=== PATIENT | male | born 1975 | race African-American/Black ===

== ENCOUNTER 2018-01-06 16:38 | Inpatient (IN) ==
[2018-01-06 17:59] LABS: Baso % (Auto) 0.6 % (0.0-2.0); Eos # (Auto) 0.1 th/mm3 (0.0-0.4); Eos % (Auto) 1.8 % (0.0-4.0); Hematocrit 35.2 % (39.0-51.0); Hemoglobin 12.5 gm/dL (13.0-17.0); Lymph # (Auto) 1.4 th/mm3 (1.0-4.8); Lymph % (Auto) 24.3 % (9.0-44.0); Mean Corpuscular HGB Conc 35.6 % (32.0-36.0); Mean Corpuscular Hemoglobin 32.1 pg (27.0-34.0); Mean Corpuscular Volume 90.2 fL (80.0-100.0); Mean Platelet Volume 10.5 fL (7.0-11.0); Mono # (Auto) 0.5 th/mm3 (0.0-0.9); Mono % (Auto) 8.8 % (0.0-8.0); Neut # (Auto) 3.6 th/mm3 (1.8-7.7); Neut % (Auto) 64.5 % (16.0-70.0); Platelet Count 169 th/mm3 (150-450); Red Cell Distribution Width 14.4 % (11.6-17.2); White Blood Count 5.6 th/mm3 (4.0-11.0)
[2018-01-06 18:20] LABS: Albumin 4.1 g/dL (3.4-5.0); Anion Gap 10 meq/L (5-15); Aspartate Aminotransferase 43 U/L (15-37); Blood Urea Nitrogen 9 mg/dL (7-18); Calcium 8.5 mg/dL (8.5-10.1); Carbon Dioxide 26.2 meq/L (21.0-32.0); Chloride 106 meq/L (98-107); Glomerular Filtration Rate 69 mL/min (>89); Glucose,Random 197 mg/dL (74-106); Magnesium 2.1 mg/dL (1.5-2.5); Potassium 3.1 meq/L (3.5-5.1); Sodium 142 meq/L (136-145)
[2018-01-06 18:32] LABS: Alanine Aminotransferase 49 U/L (12-78); Alkaline Phosphatase 59 U/L (45-117); Thyroid Stimulating Hormone 0.736 uIU/mL (0.358-3.740)
--- NOTE | 2018-01-06 18:56 | ED ---
HPI General Chief Complaint: Psychiatric Symptoms Stated Complaint: ARCHANA Painter Time Seen by Provider: 01/06/18 18:37 Source: patient Mode of arrival: ambulatory Limitations: no limitations History of Present Illness HPI Narrative: 42-year-old male presents to the emergency department under EXPARTE. He says his mother did this to him and he has no idea why. He says that she is an elderly woman and he left out of town to do work and came back in the police came and picked him up. 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 He denies suicidal or homicidal ideations. Denies history of suicidal attempts. Denies suicidal plan. Denies auditory visual hallucinations. Denies psychiatric background. Has no emergent medical complaints. Denies chest pain, shortness of breath, abdominal pain, nausea, vomiting, change in urine or stool. Denies illicit drug use, alcohol use, tobacco use. Symptoms are mild to moderate in severity. No known aggravating or relieving factors. Onset unknown. Duration unknown. No treatments tried. No primary care provider. No known allergies. Denies significant past medical history. Has no other medical complaints. No other modifying factors or associated signs and symptoms. Related Data Home Medications Medication Instructions Recorded Confirmed No Known Home Medications 01/06/18 01/06/18 Allergies Allergy/AdvReac Type Severity Reaction Status Date / Time No Known Allergies Allergy Verified 01/06/18 17:00 Review of Systems ROS: all other systems reviewed are negative [facility] Medical History Medical History Patient denies medical problems (Acute) Family History Family History Mother Diabetes Social History Social History Substance History: No History of Abuse Second Hand Smoke Exposure: No Smoking Status: Never smoker How Often Do You Have a Drink Containing Alcohol: Never Recent Travel in [place] within the Last 8 Weeks: No Recent Out of Country Travel within the Last 8 Weeks: No Immunization History Tetanus Immunization: Unsure Exam Narrative Exam Narrative: GENERAL: Well-nourished, well-developed black male patient, in no acute distress SKIN: Warm and dry. HEAD: Atraumatic. Normocephalic. EYES: Pupils equal and round. ENT: Mucosa pink and moist. NECK: Supple. Trachea midline. CARDIOVASCULAR: Regular rate and rhythm. No murmur appreciated. 3+ radial pulses. RESPIRATORY: No accessory muscle use. Clear to auscultation. Breath sounds equal bilaterally. GASTROINTESTINAL: Abdomen soft, non-tender, nondistended. Hepatic and splenic margins not palpable. Bowel sounds are active 4 quadrants. MUSCULOSKELETAL: No obvious deformities. No clubbing. No cyanosis. No edema. NEUROLOGICAL: Awake and alert. Oriented 3. No obvious cranial nerve deficits. Motor grossly within normal limits. Normal speech. Moves all extremities. 5/5 strength to all extremities. PSYCHIATRIC: No delusional thought processes. No hallucinations. Course Initial Documented Vital Signs Temperature 98.1 F 01/06/18 17:01 Pulse Rate 109 H 01/06/18 17:01 Respiratory Rate 16 01/06/18 17:01 Blood Pressure 129/79 01/06/18 17:01 Pulse Oximetry 100 01/06/18 17:01 Last Documented Vital Signs Temperature 98.5 F 01/08/18 05:32 Pulse Rate 78 01/08/18 05:32 Respiratory Rate 16 01/08/18 05:32 Blood Pressure 130/82 01/08/18 05:32 Pulse Oximetry 100 01/08/18 05:32 Medical Decision Making [facility] Narrative Medical decision making narrative: Patient presents under EXPARTE. Physical examination and vital signs are essentially unremarkable. Patient has no medical complaints to report. Psych screen has been ordered. If the laboratory results are unremarkable, the patient will be medically cleared for psychiatric evaluation and disposition. Medical Screen Exam Complete: Yes Emergency Medical Condition: Yes Differential Diagnosis Differential Diagnosis: Acute psychosis, bipolar disorder, depression, anxiety, adjustment disorder, medical clearance for psychiatric evaluation Lab Data Result diagrams: 01/06/18 17:04 01/07/18 07:00 Lab Results 01/06/18 01/06/18 01/06/18 Range/Units 17:04 17:04 17:04 WBC 5.6 (4.0-11.0) th/mm3 RBC 3.90 L (4.50-5.90) mil/mm3 Hgb 12.5 L (13.0-17.0) gm/dL Hct 35.2 L (39.0-51.0) % MCV 90.2 (80.0-100.0) fL MCH 32.1 (27.0-34.0) pg MCHC 35.6 (32.0-36.0) % RDW 14.4 (11.6-17.2) % Plt Count 169 (150-450) th/mm3 MPV 10.5 (7.0-11.0) fL Neut % (Auto) 64.5 (16.0-70.0) % Lymph % (Auto) 24.3 (9.0-44.0) % Rich % (Auto) 8.8 H (0.0-8.0) % Eos % (Auto) 1.8 (0.0-4.0) % Baso % (Auto) 0.6 (0.0-2.0) % Neut # (Auto) 3.6 (1.8-7.7) th/mm3 Lymph # (Auto) 1.4 (1.0-4.8) th/mm3 Rich # (Auto) 0.5 (0.0-0.9) th/mm3 Eos # (Auto) 0.1 (0.0-0.4) th/mm3 Baso # (Auto) 0.0 (0.0-0.2) th/mm3 WBC Differential . Differential Comment Auto diff final Sodium 142 (136-145) meq/L Potassium 3.1 L (3.5-5.1) meq/L Chloride 106 (98-107) meq/L Carbon Dioxide 26.2 (21.0-32.0) meq/L Anion Gap 10 (5-15) meq/L BUN 9 (7-18) mg/dL Creatinine 1.38 H (0.60-1.30) mg/dL Estimated GFR 69 L (>89) mL/min Random Glucose 197 H (74-106) mg/dL Calcium 8.5 (8.5-10.1) mg/dL Magnesium 2.1 (1.5-2.5) mg/dL Total Bilirubin 0.4 (0.2-1.0) mg/dL AST 43 H (15-37) U/L ALT 49 (12-78) U/L Alkaline Phosphatase 59 (45-117) U/L Total Protein 8.0 (6.4-8.2) g/dL Albumin 4.1 (3.4-5.0) g/dL Triglycerides (42-150) mg/dL Cholesterol (120-200) mg/dL LDL Cholesterol, Calc (0-99) mg/dL HDL Cholesterol (40.0-60.0) mg/dL Cholesterol/HDL Ratio Ratio TSH 0.736 (0.358-3.740) uIU/mL Salicylates Less than 1.7 L (2.8-20.0) mg/dL Urine Opiates Screen (Neg) Acetaminophen Less than 2.0 L (10.0-30.0) mcg/mL Ur Barbiturates Screen (Neg) Ur Amphetamines Screen (Neg) U Benzodiazepines Scrn (Neg) Urine Cocaine Screen (Neg) U Cannabinoids Screen (Neg) Serum Alcohol Less than 3 (0-5) mg/dL 01/06/18 01/07/18 Range/Units 19:30 07:00 WBC (4.0-11.0) th/mm3 RBC (4.50-5.90) mil/mm3 Hgb (13.0-17.0) gm/dL Hct (39.0-51.0) % MCV (80.0-100.0) fL MCH (27.0-34.0) pg MCHC (32.0-36.0) % RDW (11.6-17.2) % Plt Count (150-450) th/mm3 MPV (7.0-11.0) fL Neut % (Auto) (16.0-70.0) % Lymph % (Auto) (9.0-44.0) % Rich % (Auto) (0.0-8.0) % Eos % (Auto) (0.0-4.0) % Baso % (Auto) (0.0-2.0) % Neut # (Auto) (1.8-7.7) th/mm3 Lymph # (Auto) (1.0-4.8) th/mm3 Rich # (Auto) (0.0-0.9) th/mm3 Eos # (Auto) (0.0-0.4) th/mm3 Baso # (Auto) (0.0-0.2) th/mm3 WBC Differential Differential Comment Sodium 145 (136-145) meq/L Potassium 3.9 D (3.5-5.1) meq/L Chloride 109 H (98-107) meq/L Carbon Dioxide 26.1 (21.0-32.0) meq/L Anion Gap 10 (5-15) meq/L BUN 7 (7-18) mg/dL Creatinine 1.08 (0.60-1.30) mg/dL Estimated GFR Greater than 89 (>89) mL/min Random Glucose 118 H (74-106) mg/dL Calcium 8.1 L (8.5-10.1) mg/dL Magnesium (1.5-2.5) mg/dL Total Bilirubin (0.2-1.0) mg/dL AST (15-37) U/L ALT (12-78) U/L Alkaline Phosphatase (45-117) U/L Total Protein (6.4-8.2) g/dL Albumin (3.4-5.0) g/dL Triglycerides 131 (42-150) mg/dL Cholesterol 148 (120-200) mg/dL LDL Cholesterol, Calc 89 (0-99) mg/dL HDL Cholesterol 32.4 L (40.0-60.0) mg/dL Cholesterol/HDL Ratio 4.56 Ratio TSH (0.358-3.740) uIU/mL Salicylates (2.8-20.0) mg/dL Urine Opiates Screen Neg (Neg) Acetaminophen (10.0-30.0) mcg/mL Ur Barbiturates Screen Neg (Neg) Ur Amphetamines Screen Neg (Neg) U Benzodiazepines Scrn Neg (Neg) Urine Cocaine Screen Neg (Neg) U Cannabinoids Screen Neg (Neg) Serum Alcohol (0-5) mg/dL Discharge Plan Discharge Disposition Patient Disposition: 30 Still Patient Discharge Condition Condition: Stable Physicians Team ED Provider: Chirag Rivera ED Midlevel Provider: Belia Russell Primary Care Provider: Primary Care Bethany Kilgore Attending Provider: Ori Butcher Other Providers: Pepe Iglesias ; Polina Arce Status ED Status: Left Department Discharge Information Discharge Date/Time: 01/06/18 21:32
[2018-01-06 19:56] LABS: Amphetamine Screen,Urine Neg (Neg); Barbiturate Screen,Urine Neg (Neg); Cannabinoid Screen,Urine Neg (Neg); Cocaine Screen,Urine Neg (Neg)
[2018-01-06 19:58] LABS: Opiate Screen,Urine Neg (Neg)
[2018-01-06] MEDS ORDERED: Aluminum/Magnesium/Simethacone Susp 30 ML UDC PO PRN (21:54)
[2018-01-06] MEDS ORDERED: Acetaminophen 325 MG Tablet PO PRN (21:54)
[2018-01-06] MEDS ORDERED: LORazepam 1 MG Tablet PO PRN (21:54)
[2018-01-07 07:56] LABS: Anion Gap 10 meq/L (5-15); Blood Urea Nitrogen 7 mg/dL (7-18); Calcium 8.1 mg/dL (8.5-10.1); Carbon Dioxide 26.1 meq/L (21.0-32.0); Chloride 109 meq/L (98-107); Glomerular Filtration Rate Greater Than 89 mL/min (>89); Glucose,Random 118 mg/dL (74-106); Potassium 3.9 meq/L (3.5-5.1); Sodium 145 meq/L (136-145)
[2018-01-07 07:57] LABS: Cholesterol 148 mg/dL (120-200); Triglycerides 131 mg/dL (42-150)
[2018-01-07 07:59] LABS: Chol/HDL Ratio 4.56 Ratio; HDL Cholesterol 32.4 mg/dL (40.0-60.0); LDL Cholesterol,Calculated 89 mg/dL (0-99)
[2018-01-07] MEDS ORDERED: Aluminum/Magnesium/Simethacone Susp 30 ML UDC PO PRN (08:16)
--- NOTE | 2018-01-07 08:30 | P.HPPSY ---
Provisional Diagnosis Admission Date: January 06, 2018 21:01 Char[place]ont I.: Schizophrenia chronic paranoid type Competence Certification of Person's Competence To Provide Express and Informed Consent I have personally examined Clifton Motley JR, a person being served at [facility] on, January 07, 2018 0821. Express and informed consent means consent voluntarily given in writing, by a competent person, after sufficient explanation and disclosure of the subject matter involved to enable the person to make a knowing and willful decision without any element of force, fraud, deceit, duress, or other form of constraint or coercion. This person is 18 years of age or older, is not now known to be incompetent to consent to treatment with a guardian advocate, and does not have a health care surrogate or proxy currently making medical treatment decisions. I have found this person to be one of the following: [] Competent to provide express and informed consent, as defined above, for voluntary admission to this facility and is competent to provide express and informed consent for treatment. He/she has the consistent capacity to make well reasoned, willful, and knowing decisions concerning his or her medical or mental health treatment. The person fully and consistently understands the purpose of the admission for examination/placement and is fully capable of personally exercising all rights assured under [place]xxx[place] Incompetent to provide express and informed consent to voluntary admission , and this is incompetent to provide express and informed consent to treatment. The person must be transferred to involuntary status and a petition for a guardian advocate filed with the Circuit Court. [] Refusing to provide express and informed consent to voluntary admission but is competent to provide express and informed consent for treatment. The person must be discharged or transferred to involuntary status. Form shall be completed within 24 hours of a person's arrival at the receiving facility and filed in the clinical record of each person: 1. Admitted on a voluntary basis 2. Permitted to provide express and informed consent to his/her own treatment 3. Allowed to transfer from involuntary to voluntary status 4. Prior to permitting a person to consent to his or her own treatment after having been previously found incompetent to consent to treatment. History of Present Illness Capacity: Lacks capacity History of Present Illness: Patient is a 42-year-old Afro-[place]er male comes here under an ex parte 8 signed by his mother stating that patient has history of mental illness that has been noncompliant with medication for over 2 years showing denial of illness refusal to take medication with increased aggressive threatening behavior towards family members including his brother. Becoming somewhat destructive around the house. Walking out in cold weather and appropriately dressed, and walking around traffic in a dangerous manner. Patient was seen and screened in the ED urine toxicology negative blood alcohol level negative. Review of EMR shows patient hospitalized here in November [address] Daryn Kowalski. There is a similar behavior than ex parte done then by his mother also he was discharged on in [place] a period but it appears she never followed up. At the present time patient sitting quietly in his room nurse Vaishali present throughout session he is a stockily built muscular - [place] male sitting quietly but with an undertone of paranoia intensity and vigilance denying any mental illness stating that he was brought here because of all football injuries that his mother is sick some medication that she should be the one Cowan acted. 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 And is well educated and has multiple houses. He states that his hospitalization 2016 was because he had a football injury to his penis and his testicles. He denies voices at this time. Denies suicidality at this time. Denies alcohol or drug use. Denies any prior physical or sexual abuse. States he did graduate high school did play football for mainly in high school. At this time patient does meet criteria for further observation and assessment treatment under the Cowan act I will do first opinion request second opinion. I also feel he does not have capacity thus I will ask for health care surrogate and guardian advocate. I attempted to reach patient's mother at her phone and also at the patient's home phone there is no answer or answering machine state either telephone number we will continue to attempt to reach them to get permission to treat this young man. On the right side encouraged him to maintain self-control noted that states she is on her first requirements on the unit. - Inpatient Certification I certify that the inpatient services were ordered in accordance with Medicare regulations governing the order. This includes certification that hospital inpatient services are reasonable and necessary and in the case of services not specified as inpatient-only under 42 CFR 419.22(n), that they are appropriately provided as inpatient services in accordance to with the 2-midnight benchmark under 43 CFR 412.3(e) I certify that inpatient psychiatric hospital services are medically necessary. Evaluation and treatment and/or diagnostic testing are expected to improve the patient's condition. The patient needs on a daily basis, active treatment furnished directly by or requiring the supervision of inpatient psychiatric facility personnel. Estimated Total Length of Stay (Days): 7 Plans for Post Hospital Care: Not yet determined Review of Systems Jackie wood was hospitalized here in 2016 because of injury to his penis and testicles. Otherwise no complaints of physical problems PMFSH - History History Provided By: Patient - Medical History Medical History: Medical History (Last Reviewed 01/07/18 @ 08:26 by Angelito Yanez MD) Patient denies medical problems - Surgical History Surgical History: Surgical History (Last Reviewed 01/07/18 @ 08:26 by Angelito Yanez MD) No history of previous surgery - Social History I have reviewed the patient's Social History: Yes - Tobacco History Second Hand Smoke Exposure: No Smoking Status: Never smoker - Alcohol History How Often Do You Have a Drink Containing Alcohol: Never - Substance Use History Substance History: No History of Abuse - Travel History Recent Travel in the [place] Within the Last 8 Weeks: No Recent Travel Out of the Country Within the Last 8 Weeks: No - Immunization History Tetanus Immunization: Unable to Assess Hx Influenza Vaccine This Season: No Quality Measures - Psychiatric History Psychological trauma history: Patient denies Violence risk to others in the last 6 months: Patient been increasingly aggressive towards family and in public situations Violence risk to self in the last 6 months: Patient denies suicidality - Substance Abuse History Drug or alcohol use in the past 12 months: Patient denies - Patient Strengths Patient's strengths (minimum of 2): Patient verbal able access healthcare has supportive family Medications and Allergies Active Medications: Active Medications Acetaminophen (Tylenol) 650 mg PO Q4H PRN PRN Reason: Pain 1-5 or Temp >101F Al Hydrox/Mg Hydrox/Simethicone (Mag-Al Plus Susp Liq) 30 ml PO Q6H PRN PRN Reason: DYSPEPSIA Al Hydrox/Mg Hydrox/Simethicone (Mag-Al Plus Susp Liq) 30 ml PO Q6H PRN PRN Reason: DYSPEPSIA Al Hydroxide/Mg Hydroxide (Milk Of Magnesia Liq) 30 ml PO DAILY PRN PRN Reason: CONSTIPATION Al Hydroxide/Mg Hydroxide (Milk Of Magnesia Liq) 30 ml PO Q12H PRN PRN Reason: Mild Constipation Diphenhydramine HCl (Benadryl) 50 mg PO HS PRN PRN Reason: INSOMNIA Hydroxyzine HCl (Atarax) 50 mg PO Q6H PRN PRN Reason: ANXIETY Lorazepam (Ativan) 1 mg PO Q6H PRN PRN Reason: MODERATE TO SEVERE ANXIETY Lorazepam (Ativan Inj) 1 mg IM Q6H PRN PRN Reason: MODERATE TO SEVERE ANXIETY Allergies Allergy/AdvReac Type Severity Reaction Status Date / Time No Known Allergies Allergy Verified 01/06/18 17:00 Home Medications Medication Instructions Recorded Confirmed Type No Known Home Medications 01/06/18 01/06/18 History Results - Labs CBC & Chem 7: 01/06/18 17:04 01/07/18 07:00 Labs: Laboratory Results - last 24 hr 01/06/18 01/06/18 01/06/18 17:04 17:04 17:04 WBC 5.6 RBC 3.90 L Hgb 12.5 L Hct 35.2 L MCV 90.2 MCH 32.1 MCHC 35.6 RDW 14.4 Plt Count 169 MPV 10.5 Neut % (Auto) 64.5 Lymph % (Auto) 24.3 [place] % (Auto) 8.8 H Eos % (Auto) 1.8 Baso % (Auto) 0.6 Neut # (Auto) 3.6 Lymph # (Auto) 1.4 [place] # (Auto) 0.5 Eos # (Auto) 0.1 Baso # (Auto) 0.0 WBC Differential . Differential Comment Auto diff final Sodium 142 Potassium 3.1 L Chloride 106 Carbon Dioxide 26.2 Anion Gap 10 BUN 9 Creatinine 1.38 H Estimated GFR 69 L Random Glucose 197 H Calcium 8.5 Magnesium 2.1 Total Bilirubin 0.4 AST 43 H ALT 49 Alkaline Phosphatase 59 Total Protein 8.0 Albumin 4.1 Triglycerides Cholesterol LDL Cholesterol, Calc HDL Cholesterol Cholesterol/HDL Ratio TSH 0.736 Salicylates Less than 1.7 L Urine Opiates Screen Acetaminophen Less than 2.0 L Ur Barbiturates Screen Ur Amphetamines Screen U Benzodiazepines Scrn Urine Cocaine Screen U Cannabinoids Screen Serum Alcohol Less than 3 01/06/18 01/07/18 19:30 07:00 WBC RBC Hgb Hct MCV MCH MCHC RDW Plt Count MPV Neut % (Auto) Lymph % (Auto) [place] % (Auto) Eos % (Auto) Baso % (Auto) Neut # (Auto) Lymph # (Auto) [place] # (Auto) Eos # (Auto) Baso # (Auto) WBC Differential Differential Comment Sodium 145 Potassium 3.9 D Chloride 109 H Carbon Dioxide 26.1 Anion Gap 10 BUN 7 Creatinine 1.08 Estimated GFR Greater than 89 Random Glucose 118 H Calcium 8.1 L Magnesium Total Bilirubin AST ALT Alkaline Phosphatase Total Protein Albumin Triglycerides 131 Cholesterol 148 LDL Cholesterol, Calc 89 HDL Cholesterol 32.4 L Cholesterol/HDL Ratio 4.56 TSH Salicylates Urine Opiates Screen Neg Acetaminophen Ur Barbiturates Screen Neg Ur Amphetamines Screen Neg U Benzodiazepines Scrn Neg Urine Cocaine Screen Neg U Cannabinoids Screen Neg Serum Alcohol Exam Vital signs: Vital Signs 01/06/18 17:01 01/06/18 17:39 01/06/18 18:21 Temperature 98.1 F 96.8 F L 96.3 F L Pulse Rate 109 H 99 H 86 Respiratory Rate 16 16 16 Blood Pressure 129/79 118/85 114/66 Pulse Oximetry 100 99 98 01/06/18 21:44 01/07/18 05:28 01/07/18 07:40 Temperature 98.4 F 98.2 F Pulse Rate 93 H 80 92 H Respiratory Rate 17 17 Blood Pressure 130/84 155/99 H 148/94 H Pulse Oximetry 98 100 Intake & Output 01/06/18 01/07/18 01/07/18 18:59 06:59 18:59 Weight 95.254 kg 93.7 kg Other: Weight On Admission 93.7 kg Narrative: Patient sitting in his room with nurse Vaishali present he is in no acute distress, is and os chart distress, no complaints of chest pain or abdominal pain. Patient moving all 4 extremities without difficulty Mental Status Examination Appearance: Appropriate Consciousness: Alert Orientation: Person, Place, Date/Time Motor Activity: Normal gait Speech: Unremarkable Language: Adequate Fund of Knowledge: Adequate Attention and Concentration: Adequate (Fair) Memory: Impaired Mood: Angry, Irritable Affect: Other (Increased range and intensity) Thought Process & Associations: Linear Thought Content: Bizarre thinking, Ideas of reference Hallucination Type: None Delusion Type: Paranoid (Patient denies) Suicidal Ideation: No Suicidal Plan: No Suicidal Intention: No Homicidal Ideation: No Homicidal Plan: No Homicidal Intention: No Insight: Poor Judgment: Poor Assessment and Plan - Assessment (1) Paranoid type schizophrenia, chronic state with acute exacerbation Code(s): F20.0 - Paranoid schizophrenia Status: Acute - Plan Plan: Estimated LOS: [] days Patient does meet criteria for further inpatient psychiatric hospitalization of the Cowan act I will do first opinion request second opinion. I feel he does not have capacity to make decisions concerning his care thus I will ask for health care surrogate and guardian advocate. I have attempted to reach patient' s mother and family at 2 different phone numbers there is no answer and no answering machine. Patient is blood pressure is somewhat elevated we will have the hospitalist consult will us related to that. Hopefully can get permission from family member to initiate psychotropic medication on this young man Justification for Continued Inpatient Stay: At this time patient would decompensate a place to a lower level of care Discharge Planning: To be determined Request Healthcare Surrogate/Guardian Advocate?: Yes
--- NOTE | 2018-01-07 13:17 | P.CON ---
History of Present Illness Service: [facility] Consult date: 01/07/18 Requesting Physician: Agnelito Yanez Reason for Consult: Elevated blood pressure Primary Care Provider: No Primary Care Physician Chief Complaint: Elevated blood pressure History of Present Illness: 42-year-old male with no significant medical history. [facility] consulted regarding hypertension. He presented to the emergency department under [facility]. He told the nurses he was here because of his mother and she should be the one in here. He states he was brought here for a physical. 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 He denies suicidal or homicidal ideations. Patient have various inconsistencies with his story. States that he does not live with his mother and that he has a but later on states that he lives by himself and not living with anyone. Patient also states that "you are medical you do not understand what is going on. Appears to be internally stimulated. He denies any past medical history, states he had a hernia repair related to a football injury. Has no emergent medical complaints. Denies chest pain, shortness of breath, abdominal pain, nausea, vomiting, change in urine or stool. Denies illicit drug use, alcohol use, tobacco use. Review of Systems unobtainable due to mental condition PMFSH - History History Provided By: Patient - Medical History Medical History: Medical History (Last Reviewed 01/07/18 @ 08:26 by Angelito Yanez MD) Patient denies medical problems - Surgical History Surgical History: Surgical History (Last Reviewed 01/07/18 @ 08:26 by Angelito Yanez MD) No history of previous surgery - Family History Family History: Family History (Last Updated 01/07/18 @ 13:27 by SHELLIE Allison) Mother Diabetes - Social History I have reviewed the patient's Social History: Yes - Tobacco History Second Hand Smoke Exposure: No Smoking Status: Never smoker - Alcohol History How Often Do You Have a Drink Containing Alcohol: Never - Substance Use History Substance History: No History of Abuse - Travel History Recent Travel in the [place] Within the Last 8 Weeks: No Recent Travel Out of the Country Within the Last 8 Weeks: No - Immunization History Tetanus Immunization: Unable to Assess Hx Influenza Vaccine This Season: No Medications and Allergies Active Medications: Active Medications Acetaminophen (Tylenol) 650 mg PO Q4H PRN PRN Reason: Pain 1-5 or Temp >101F Al Hydrox/Mg Hydrox/Simethicone (Mag-Al Plus Susp Liq) 30 ml PO Q6H PRN PRN Reason: DYSPEPSIA Al Hydrox/Mg Hydrox/Simethicone (Mag-Al Plus Susp Liq) 30 ml PO Q6H PRN PRN Reason: DYSPEPSIA Al Hydroxide/Mg Hydroxide (Milk Of Magnesia Liq) 30 ml PO DAILY PRN PRN Reason: CONSTIPATION Al Hydroxide/Mg Hydroxide (Milk Of Magnesia Liq) 30 ml PO Q12H PRN PRN Reason: Mild Constipation Clonidine HCl (Catapres) 0.1 mg PO Q6H PRN PRN Reason: SBP >180, DBP >100 Diphenhydramine HCl (Benadryl) 50 mg PO HS PRN PRN Reason: INSOMNIA Hydroxyzine HCl (Atarax) 50 mg PO Q6H PRN PRN Reason: ANXIETY Lorazepam (Ativan) 1 mg PO Q6H PRN PRN Reason: MODERATE TO SEVERE ANXIETY Lorazepam (Ativan Inj) 1 mg IM Q6H PRN PRN Reason: MODERATE TO SEVERE ANXIETY Allergies Allergy/AdvReac Type Severity Reaction Status Date / Time No Known Allergies Allergy Verified 01/06/18 17:00 Home Medications Medication Instructions Recorded Confirmed Type No Known Home Medications 01/06/18 01/06/18 History Physical Exam Vital signs: Vital Signs 01/06/18 17:01 01/06/18 17:39 01/06/18 18:21 Temperature 98.1 F 96.8 F L 96.3 F L Pulse Rate 109 H 99 H 86 Respiratory Rate 16 16 16 Blood Pressure 129/79 118/85 114/66 Pulse Oximetry 100 99 98 01/06/18 21:44 01/07/18 05:28 01/07/18 07:40 Temperature 98.4 F 98.2 F Pulse Rate 93 H 80 92 H Respiratory Rate 17 17 Blood Pressure 130/84 155/99 H 148/94 H Pulse Oximetry 98 100 Intake & Output 01/06/18 01/07/18 01/07/18 18:59 06:59 18:59 Intake Total 720 / 720 Balance 720 / 720 Weight 95.254 kg 93.7 kg Intake: Oral 720 / 720 Other: Weight On Admission 93.7 kg Narrative: GENERAL: This is a well-nourished, well-developed patient, in no apparent distress. SKIN: Warm and dry. HEENT: Normocephalic. Pupils equal round and reactive. Nose without bleeding. Airway patent. NECK: Trachea midline. CARDIOVASCULAR: Regular rate and rhythm without murmurs, gallops, or rubs. RESPIRATORY: Clear to auscultation. Breath sounds equal bilaterally. No wheezes , rales, or rhonchi. GASTROINTESTINAL: Abdomen soft, non-tender, slightly distended. Bowel Sounds hypoactive MUSCULOSKELETAL: Extremities without clubbing, cyanosis, or edema. NEUROLOGICAL: Awake and alert. Moves all extremities. Fast speech. Appears to be internally stimulated. Results - Labs CBC & Chem 7: 01/06/18 17:04 01/07/18 07:00 Labs: Laboratory Results - last 24 hr 01/06/18 01/06/18 01/06/18 17:04 17:04 17:04 WBC 5.6 RBC 3.90 L Hgb 12.5 L Hct 35.2 L MCV 90.2 MCH 32.1 MCHC 35.6 RDW 14.4 Plt Count 169 MPV 10.5 Neut % (Auto) 64.5 Lymph % (Auto) 24.3 Trimble % (Auto) 8.8 H Eos % (Auto) 1.8 Baso % (Auto) 0.6 Neut # (Auto) 3.6 Lymph # (Auto) 1.4 Trimble # (Auto) 0.5 Eos # (Auto) 0.1 Baso # (Auto) 0.0 WBC Differential . Differential Comment Auto diff final Sodium 142 Potassium 3.1 L Chloride 106 Carbon Dioxide 26.2 Anion Gap 10 BUN 9 Creatinine 1.38 H Estimated GFR 69 L Random Glucose 197 H Calcium 8.5 Magnesium 2.1 Total Bilirubin 0.4 AST 43 H ALT 49 Alkaline Phosphatase 59 Total Protein 8.0 Albumin 4.1 Triglycerides Cholesterol LDL Cholesterol, Calc HDL Cholesterol Cholesterol/HDL Ratio TSH 0.736 Salicylates Less than 1.7 L Urine Opiates Screen Acetaminophen Less than 2.0 L Ur Barbiturates Screen Ur Amphetamines Screen U Benzodiazepines Scrn Urine Cocaine Screen U Cannabinoids Screen Serum Alcohol Less than 3 01/06/18 01/07/18 19:30 07:00 WBC RBC Hgb Hct MCV MCH MCHC RDW Plt Count MPV Neut % (Auto) Lymph % (Auto) Trimble % (Auto) Eos % (Auto) Baso % (Auto) Neut # (Auto) Lymph # (Auto) Trimble # (Auto) Eos # (Auto) Baso # (Auto) WBC Differential Differential Comment Sodium 145 Potassium 3.9 D Chloride 109 H Carbon Dioxide 26.1 Anion Gap 10 BUN 7 Creatinine 1.08 Estimated GFR Greater than 89 Random Glucose 118 H Calcium 8.1 L Magnesium Total Bilirubin AST ALT Alkaline Phosphatase Total Protein Albumin Triglycerides 131 Cholesterol 148 LDL Cholesterol, Calc 89 HDL Cholesterol 32.4 L Cholesterol/HDL Ratio 4.56 TSH Salicylates Urine Opiates Screen Neg Acetaminophen Ur Barbiturates Screen Neg Ur Amphetamines Screen Neg U Benzodiazepines Scrn Neg Urine Cocaine Screen Neg U Cannabinoids Screen Neg Serum Alcohol Assessment and Plan - Plan 42-year-old male with no significant medical history. [facility] consulted regarding hypertension. Paranoid schizophrenia Delusional -Managed by psychiatry Elevated blood pressure on two subsequent episodes within 2 hours, no prior medical history of HTN. -Clonidine PRN -Will not be placed on BP meds for now. Patient appears to be internally stimulated which may cause the elevated BP. -Cont to monitor. Elevated glucose, was 197 now 118 -Await results of HgbA1c DVT Prop ambulatory Code Status: Full code Discussed Condition With: patient, nursing Discharge Planning: DC disposition by primary team
[2018-01-08 11:37] LABS: Hemoglobin A1c 5.8 % (4.3-6.0)
--- NOTE | 2018-01-08 14:21 | P.PNIM ---
Subjective Interval history: Follow-up visit elevated BP. Patient seen today. Reports he is doing well. Denies pain and discomfort. Denies SOB/ dyspnea. Denies chest pain, palpitations, headaches, dizziness. Denies fevers, chills, n/v/d. As per nursing, no acute issues. Physical Exam Vital signs: Vital Signs 01/07/18 17:15 01/08/18 05:32 Temperature 97.6 F 98.5 F Pulse Rate 74 78 Respiratory Rate 18 16 Blood Pressure 140/78 130/82 Pulse Oximetry 98 100 Intake & Output 01/07/18 01/08/18 01/08/18 18:59 06:59 18:59 Intake Total 1080 / 1080 360 / 360 Balance 1080 / 1080 360 / 360 Intake: Oral 1080 / 1080 360 / 360 Narrative: GENERAL: This is a well-nourished, well-developed patient, in no apparent distress. SKIN: Warm and dry. HEENT: Normocephalic. Pupils equal round and reactive. Nose without bleeding. Airway patent. NECK: Trachea midline. MUSCULOSKELETAL: Extremities without clubbing, cyanosis, or edema. NEUROLOGICAL: Awake and alert. Moves all extremities. Normal speech. Pacing in his room. Appears anxious. Results - Labs CBC & Chem 7: 01/06/18 17:04 01/07/18 07:00 Laboratory Results - last 24 hr 01/07/18 07:00 Hemoglobin A1c 5.8 Assessment and Plan - Plan 42-year-old male with no significant medical history. [facility] consulted regarding hypertension. Paranoid schizophrenia Delusional -Managed by psychiatry Elevated blood pressure on two subsequent episodes within 2 hours, no prior medical history of HTN. -Clonidine PRN -BP Trend within normal. -No medications at this time. Elevated glucose, was 197 now 118 -HgbA1c 5.8 DVT Prop ambulatory Stable from Hospitalist standpoint. We will sign off. Reconsult as needed. Thank you. Code Status: Full Code Discussed Condition With: Patient, nursing Discharge Planning: DC disposition by primary team
--- NOTE | 2018-01-08 15:01 | P.PNPSY ---
Subjective Remarks: This is a request for second opinion. Admission note was reviewed and I agree with the history. Patient was seen and case was discussed with nursing. Patient minimizes the reasons and incidents that led to his admission. He has grandiose delusions that he has a degree in theology and later makes contradicting statements to the nurse that he needs to get his degree. Patient is internally stimulated. He does deny auditory or visual hallucinations. Denies suicidal or homicidal ideation intent or plan Mental Status Examination Appearance: Appropriate Consciousness: Alert Orientation: Person, Place, Date/Time Motor Activity: Normal gait Speech: Unremarkable Language: Adequate Fund of Knowledge: Adequate Attention and Concentration: Adequate (Fair) Memory: Impaired Mood: Irritable Affect: Other (Increased range and intensity) Thought Process & Associations: Linear Thought Content: Bizarre thinking, Ideas of reference Hallucination Type: None Delusion Type: Paranoid (Patient denies) Suicidal Ideation: No Suicidal Plan: No Suicidal Intention: No Homicidal Ideation: No Homicidal Plan: No Homicidal Intention: No Insight: Poor Judgment: Poor Assessment and Plan - Assessment (1) Paranoid type schizophrenia, chronic state with acute exacerbation Code(s): F20.0 - Paranoid schizophrenia Status: Acute - Plan Plan: I agree with the first opinion to continue petition. Criteria include acute psychosis Justification for Continued Inpatient Stay: Patient would decompensate in a less restrictive setting Request Healthcare Surrogate/Guardian Advocate?: Yes
--- NOTE | 2018-01-09 09:44 | P.TTN ---
- Patient Problems Problems: 1. Discharge planning 2. Medication compliance 3. Knowledge deficit 4. Lack of coping skills - Progress Toward Goals Provider Present: Dr. Virgil Yanez (Patient remains for further stabilization, Dr. Yanez is titrating medications.) Psychiatric Counselors Present: Marcus Sousa Jr., [facility] (Counselor will meet with the patient to discuss a safe discharge plan.) Group Spec/RT/OT/ADAMS Present: BRYAN Gale (Patient attends select groups.) - Documentation Teaching Recipient: Patient
--- NOTE | 2018-01-09 12:46 | P.PNPSY ---
Subjective Remarks: Patient's hospital course sleep problems that have been quite chronicHe was somewhat focused on peers for her along with the anxiety that was related to this. Her depression did lift a little not totally. Her suicidality resolved denied any voices or visions. Said her sleep has improved with the combination of medications though not to the point where she could get "a good hours of sleep at night". However she does denies suicidality homicidality voice or visions. She states she wishes to go home today to continue her care as an outpatient that she misses her admissions her pet dogs in her own home. At this time patient does not meet criteria for involuntary psychiatric hospitalization and I feel she has met maximum benefit of this hospitalization thus I will allow patient to be discharged today to herself and I forgot that with attempts at being intimidating. I again attempted to call patient's mother Svetlana Motley at [phone] there is no answer and no answering machine I also tried calling the patient's home phone number of [phone] there is no answer there and no answering machine and there either. I will continue to attempt to reach patient's mother. I feel this patient continues to not have capacity. I feel he is significantly mentally ill delusional and psychotic and is in need of psychotropic medication. However with nobody to give us permission yet and his behavior is not been so out of control that he needs an ETO. Patient will be scheduled for [employer] [facility] on 01/12. He may have to wait until then to get a guardian advocate Review of Systems All other systems reviewed negative except as stated in HPI Mental Status Examination Appearance: Appropriate Consciousness: Alert Orientation: Person, Place, Date/Time Motor Activity: Normal gait Speech: Unremarkable, Pressured Language: Adequate Fund of Knowledge: Adequate Attention and Concentration: Adequate (Fair) Memory: Impaired Mood: Angry, Irritable Affect: Other (Increased range and intensity) Thought Process & Associations: Disorganized (Somewhat), Linear Thought Content: Bizarre thinking, Ideas of reference Hallucination Type: None Delusion Type: Paranoid (Patient denies) Suicidal Ideation: No Suicidal Plan: No Suicidal Intention: No Homicidal Ideation: No Homicidal Plan: No Homicidal Intention: No Insight: Poor Judgment: Poor Assessment and Plan - Assessment (1) Paranoid type schizophrenia, chronic state with acute exacerbation Code(s): F20.0 - Paranoid schizophrenia Status: Acute - Plan Plan: Patient continues psychotic delusional quite paranoid with no insight into his disease. However he night up and able to identify a person to be healthcare surrogate so we may initiate treatment. 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
--- NOTE | 2018-01-10 10:35 | P.PNPSY ---
Subjective Remarks: Patient seen in his room with nurse Pineda, chart reviewed, patient has been no behavior problems, though there is minimal interaction with other patients or with staff. I went into detail related to his being [place] acted with an ex parte today by his mother, my feelings as to why he continues to meet [place] criteria and his appearance in [employer] [address] on . Patient focused pretty well this became quite perseverative about his mother's medical conditions. 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 He also states that he is that his is good support of his and his children. For now continue treatment today. The patient does have a significant mental illness that does not need treatment. However his behavior has been such that he does not demand an ETO. I have been unable to contact patient's mother or family however she has contacted counselor Marcus. We will attempt to arrange a meeting with her for tomorrow morning Review of Systems All other systems reviewed negative except as stated in HPI Mental Status Examination Appearance: Appropriate Consciousness: Alert Orientation: Person, Place, Date/Time Motor Activity: Normal gait Speech: Unremarkable, Pressured Language: Adequate, Perseveration Fund of Knowledge: Adequate Attention and Concentration: Adequate (Fair) Memory: Impaired Mood: Angry, Irritable Affect: Other (Increased range and intensity) Thought Process & Associations: Disorganized (Somewhat), Linear Thought Content: Bizarre thinking, Ideas of reference Hallucination Type: None Delusion Type: Paranoid (Patient denies) Suicidal Ideation: No Suicidal Plan: No Suicidal Intention: No Homicidal Ideation: No Homicidal Plan: No Homicidal Intention: No Insight: Poor Judgment: Poor Assessment and Plan - Assessment (1) Paranoid type schizophrenia, chronic state with acute exacerbation Code(s): F20.0 - Paranoid schizophrenia Status: Acute - Plan Plan: Patient remained psychotic delusional and paranoid, with no insight into his disease denies illness and need for medication. For now continue treatment attempting to meet with patient's mother tomorrow. Patient is scheduled for [employer] [address] on 01/12 Justification for Continued Inpatient Stay: At this time patient would decompensate a place to a lower level of care Discharge Planning: To be determined Request Healthcare Surrogate/Guardian Advocate?: Yes
--- NOTE | 2018-01-11 12:49 | P.PNPSY ---
Subjective Remarks: Patient is seen in his room with nurse Vaishali, chart reviewed, patient continues no behavioral problems, is anticipating [employer] [address] appearance tomorrow. Though his psychosis is delusions persist the Review of Systems All other systems reviewed negative except as stated in HPI Mental Status Examination Appearance: Appropriate Consciousness: Alert Orientation: Person, Place, Date/Time Motor Activity: Normal gait Speech: Unremarkable, Pressured Language: Adequate, Perseveration Fund of Knowledge: Adequate Attention and Concentration: Adequate (Fair) Memory: Impaired Mood: Angry, Irritable (Calm her) Affect: Other (Calmer today) Thought Process & Associations: Disorganized (Somewhat more focused), Linear Thought Content: Bizarre thinking, Ideas of reference Hallucination Type: None Delusion Type: Paranoid (Patient denies) Suicidal Ideation: No Suicidal Plan: No Suicidal Intention: No Homicidal Ideation: No Homicidal Plan: No Homicidal Intention: No Insight: Poor Judgment: Poor Assessment and Plan - Assessment (1) Paranoid type schizophrenia, chronic state with acute exacerbation Code(s): F20.0 - Paranoid schizophrenia Status: Acute - Plan Plan: Patient remained psychotic delusional though calmer today patient scheduled for [place] [facility] tomorrow Justification for Continued Inpatient Stay: At this time patient would decompensate a place to a lower level of care Discharge Planning: To be determined Request Healthcare Surrogate/Guardian Advocate?: Yes
--- NOTE | 2018-01-12 08:41 | P.TTN ---
- Patient Problems Problems: 1. Discharge planning 2. Medication compliance 3. Knowledge deficit 4. Lack of coping skills - Progress Toward Goals Provider Present: Dr. Virgil Yanez (Patient remains for further stabilization, Dr. Yanez is titrating medications.) Provider Input: 01/11: Pt currently meets criteria. He has been displaying intimidating behavior at home; refuses medications Nurse(s) Present: Jessika Nurse Input: 01/12: No behavioral issues; seclusive and withdrawn; pt has [place] court today Psychiatric Counselors Present: Marcus Sousa Jr., [facility] (Counselor will meet with the patient to discuss a safe discharge plan.) Psychiatric Therapist Input: 01/11: Pt's mother will not allow him back to the house unless he receives a long acting injection Group Spec/RT/OT/ADAMS Present: BRYAN Hernández Group Spec/RT/OT/ADAMS Input: 01/11: Pt attends select groups with minimal participation, remains seclusive to self and withdrawn - Discharge Plan Other 01/11: Discharge planning in progress. Possible discharge back to mother's house - Documentation Teaching Recipient: Patient
--- NOTE | 2018-01-12 11:07 | P.PNPSY ---
Subjective Remarks: Patient seen in [employer] [address] with his mother and father. Patient retained by [employer] court charge Maicol. 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 Denying mental illness denying need for medication. However mother did verify the severity of his disease his paranoia his anger outbursts and threatening behavior towards herself and her son along with his father. The drum attendant felt there is too much animosity between patient and his family for the family to be guardian advocate thus he appointed the [facility] solar sales representative and assessor to be guardian advocate After [place] I again met with patient along with nurse Vaishali. I explained in detail the decision of the [employer] charge made retaining the patient. I explained in detail that there will be a person appointed as guardian advocate from [facility]. I also explained to him that I will be offering him medication to help treat his mental illness orally and if he refuses to take the medication orally we will give him the same medication as an intramuscular injection. I also shared with him the fact that the guardian advocate is giving us permission to do that and at this time he does not have the capacity to make that decision himself. Patient showing increased irritability reviewed with this saying he wanted to talk to all the charges all the doctors all the road worker involved wanting to see all the paperwork he could read it and take it to his own sheet metal fabricator. For now we will await an appointment of the guardian advocate to consider medication options Review of Systems All other systems reviewed negative except as stated in HPI Mental Status Examination Appearance: Appropriate Consciousness: Alert Orientation: Person, Place, Date/Time Motor Activity: Normal gait Speech: Unremarkable, Pressured Language: Adequate, Perseveration Fund of Knowledge: Adequate Attention and Concentration: Adequate (Fair) Memory: Impaired Mood: Angry, Irritable (Calm her) Affect: Other (Calmer today) Thought Process & Associations: Disorganized (Somewhat more focused), Linear Thought Content: Bizarre thinking, Ideas of reference Hallucination Type: None Delusion Type: Paranoid (Patient denies) Suicidal Ideation: No Suicidal Plan: No Suicidal Intention: No Homicidal Ideation: No Homicidal Plan: No Homicidal Intention: No Insight: Poor Judgment: Poor Assessment and Plan - Assessment (1) Paranoid type schizophrenia, chronic state with acute exacerbation Code(s): F20.0 - Paranoid schizophrenia Status: Acute - Plan Plan: Patient retained by [place] court charge with porsha to be guardian advocate. This was explained in detail to the patient patient shows absolutely no insight into this. 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 Once we have the guardian advocate identified we will offer medication perhaps Resporal or Geodon Justification for Continued Inpatient Stay: At this time patient would decompensate a place to a lower level of care Discharge Planning: To be determined perhaps back with family if he is cooperative and responds to medication Request Healthcare Surrogate/Guardian Advocate?: Yes
--- NOTE | 2018-01-13 13:47 | P.PNPSY ---
Subjective Remarks: Patient seen in his room with nurse zain, chart reviewed, patient calm continues to isolate. Patient continues no insight into his disease. There is showing self-control related to his paranoia and delusions. I again explained to him the findings of the [place] [facility] I also explained to him that I would be ordering Geodon 40 mg p.o. twice daily and if refuses that to be given [address] IM in its [address] only with permission of the guardian advocate. Hopefully we will be able to obtain that permission soon so he can start treatment Review of Systems All other systems reviewed negative except as stated in HPI Mental Status Examination Appearance: Appropriate Consciousness: Alert Orientation: Person, Place, Date/Time Motor Activity: Normal gait Speech: Unremarkable Language: Adequate, Perseveration Fund of Knowledge: Adequate Attention and Concentration: Adequate (Fair) Memory: Impaired Mood: Angry, Irritable (Calm her) Affect: Other (Calmer today) Thought Process & Associations: Disorganized (Somewhat more focused), Linear Thought Content: Bizarre thinking, Ideas of reference Hallucination Type: None Delusion Type: Paranoid (Patient denies) Suicidal Ideation: No Suicidal Plan: No Suicidal Intention: No Homicidal Ideation: No Homicidal Plan: No Homicidal Intention: No Insight: Poor Judgment: Poor Assessment and Plan - Assessment (1) Paranoid type schizophrenia, chronic state with acute exacerbation Code(s): F20.0 - Paranoid schizophrenia Status: Acute - Plan Plan: Patient remained psychotic delusional paranoid with no insight into her disease. C medication adjustments above Justification for Continued Inpatient Stay: At this time patient would decompensate a place to a lower level of care Discharge Planning: To be determined Request Healthcare Surrogate/Guardian Advocate?: Yes
--- NOTE | 2018-01-14 19:01 | P.PNPSY ---
Subjective Remarks: Reviewed electronic medical records and discussed case with staff. Follow-up was conducted in the patient's room with ELIZABETH Cespedes present. She reports that he has been seclusive to his room and internally stimulated. She is observed him in his room laughing, talking to no one, and walking in circles. Patient denies all of this however, it has been observed by the nurse. He has been compliant with his meds. He states that he is "maintaining". Reports that he sleeping and eating well. He was rather malodorous and was encouraged to take a shower which it seems he is complying with. Mental Status Examination Appearance: Appropriate Consciousness: Alert Orientation: Person, Place, Date/Time Motor Activity: Normal gait Speech: Unremarkable Language: Adequate, Perseveration Fund of Knowledge: Adequate Attention and Concentration: Adequate (Fair) Memory: Impaired Mood: Angry, Irritable (Calm her) Affect: Other (Calmer today) Thought Process & Associations: Disorganized (Somewhat more focused), Linear Thought Content: Bizarre thinking, Ideas of reference Hallucination Type: None Delusion Type: Paranoid (Patient denies) Suicidal Ideation: No Suicidal Plan: No Suicidal Intention: No Homicidal Ideation: No Homicidal Plan: No Homicidal Intention: No Insight: Poor Judgment: Poor Assessment and Plan - Assessment (1) Paranoid type schizophrenia, chronic state with acute exacerbation Code(s): F20.0 - Paranoid schizophrenia Status: Acute - Plan Plan: Patient will be reevaluated by the attending psychiatrist. Continue with current treatment plan. Justification for Continued Inpatient Stay: Moving this patient to a less restrictive environment would likely result in decompensation. Request Healthcare Surrogate/Guardian Advocate?: Yes
--- NOTE | 2018-01-15 10:55 | P.PNPSY ---
Subjective Remarks: Reviewed electronic medical record and discussed with nursing a staff. Rounded with ELIZABETH Jiang. Patient in day room watching television. He is very pleasant. Denies any auditory or visual hallucinations, but the nursing staff feels that he continues to be internally stimulated. He states he is sleeping alot better in the hospital. Appetite is good. Participated in unit activities. Review of Systems All other systems reviewed negative except as stated in HPI Mental Status Examination Appearance: Appropriate Consciousness: Alert Orientation: Person, Place, Date/Time Motor Activity: Normal gait Speech: Unremarkable Language: Adequate, Perseveration Fund of Knowledge: Adequate Attention and Concentration: Adequate (Fair) Memory: Impaired Mood: Appropriate Affect: Appropriate Thought Process & Associations: Disorganized (Somewhat more focused), Linear Thought Content: Bizarre thinking, Ideas of reference Hallucination Type: None Delusion Type: Paranoid (Patient denies) Suicidal Ideation: No Suicidal Plan: No Suicidal Intention: No Homicidal Ideation: No Homicidal Plan: No Homicidal Intention: No Insight: Poor Judgment: Poor Assessment and Plan - Assessment (1) Paranoid type schizophrenia, chronic state with acute exacerbation Code(s): F20.0 - Paranoid schizophrenia Status: Acute - Plan Plan: Patient will be reevaluated by the attending psychiatrist. Continue with current treatment plan. Justification for Continued Inpatient Stay: Moving patient to a less restrictive environment may result in his decompensation. Request Healthcare Surrogate/Guardian Advocate?: Yes
[2018-01-16 05:59] VITALS: BP 154/87; PULSE 83; RESP 17; TEMP 98.3; O2SAT 99
--- NOTE | 2018-01-16 13:02 | P.DSPSY ---
Psychiatry Discharge Summary Inpatient Psychiatric care?: Yes Advance Directives: No Mental Health Advance Directive: Unknown Health Care Proxy: Unknown - Admission Admission Date: January 06, 2018 21:01 - Admission Diagnosis (1) Paranoid type schizophrenia, chronic state with acute exacerbation Code(s): F20.0 - Paranoid schizophrenia Brief History: Patient is a 42-year-old Afro-[place]ese male comes here under an ex parte 8 signed by his mother stating that patient has history of mental illness that has been noncompliant with medication for over 2 years showing denial of illness refusal to take medication with increased aggressive threatening behavior towards family members including his brother. Becoming somewhat destructive around the house. Walking out in cold weather and appropriately dressed, and walking around traffic in a dangerous manner. Patient was seen and screened in the ED urine toxicology negative blood alcohol level negative. Review of EMR shows patient hospitalized here in November [address] Daryn Kowalski. There is a similar behavior than ex parte done then by his mother also he was discharged on in [place] sustain a period but it appears she never followed up. At the present time patient sitting quietly in his room nurse Vaishali present throughout session he is a stockily built muscular - [place]ese male sitting quietly but with an undertone of paranoia intensity and vigilance denying any mental illness stating that he was brought here because of all football injuries that his mother is sick some medication that she should be the one Chap[place] acted. 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 And is well educated and has multiple houses. He states that his hospitalization 2016 was because he had a football injury to his penis and his testicles. He denies voices at this time. Denies suicidality at this time. Denies alcohol or drug use. Denies any prior physical or sexual abuse. States he did graduate high school did play football for mainly in high school. At this time patient does meet criteria for further observation and assessment treatment under the [place] I will do first opinion request second opinion. I also feel he does not have capacity thus I will ask for health care surrogate and guardian advocate. I attempted to reach patient's mother at her phone and also at the patient's home phone there is no answer or answering machine state either telephone number we will continue to attempt to reach them to get permission to treat this young man. On the right side encouraged him to maintain self-control noted that states she is on her first requirements on the unit. Tobacco Use In Past 30 Days: No How Often Do You Have a Drink Containing Alcohol: Never Hospital Course: Patient was retained [place] with a guardian advocate appointed last week. He was then started on Geodon 40 mg twice a day. He has been cooperative and compliant with the medication since then. He has shown no behavior problems. He has not shown significant more interaction but he has been pleasant with staff and other patients. Patient seen by me today with nurse Vaishali and medical student Hilda the continues minimal insight into his disease. He states he feels well. He also states he notices little change since taking the medication. Though he is calm and the paranoia has diminished. He states he is willing to continue taking medication as an outpatient and follow-up outpatient psychiatry if it is required of him. I did verify that it is required of him. I also shared with him that noncompliance with medication and appointments would more than likely result in a readmission. However I am willing to give him the opportunity to show compliance and less restrictive setting. Thus patient will be discharged today to himself with Rx times 1 month follow-up [place] act - Discharge Discharge Date: 01/16/18 - Discharge Diagnosis (1) Paranoid type schizophrenia, chronic state with acute exacerbation Code(s): F20.0 - Paranoid schizophrenia Status: Acute Discharge Disposition: Home - Discharge Instructions Discharge Diet: Regular Diet Activities You Can Perform: Regular- No Restrictions - Discharge Time > 30 minutes Mental Status Examination Appearance: Appropriate Consciousness: Alert Orientation: Person, Place, Date/Time Motor Activity: Normal gait Speech: Unremarkable Language: Adequate, Perseveration Fund of Knowledge: Adequate Attention and Concentration: Adequate (Fair) Memory: Impaired Mood: Appropriate Affect: Appropriate Thought Process & Associations: Disorganized (Somewhat more focused), Linear Thought Content: Bizarre thinking, Ideas of reference Hallucination Type: None Delusion Type: Paranoid (Patient denies) Suicidal Ideation: No Suicidal Plan: No Suicidal Intention: No Homicidal Ideation: No Homicidal Plan: No Homicidal Intention: No Insight: Poor Judgment: Poor Discharge/Advance Care Plan - Results Vital Signs: Last Vital Signs Temp 98.3 F 01/16/18 05:58 Pulse 83 01/16/18 05:58 Resp 17 01/16/18 05:58 BP 154/87 H 01/16/18 05:58 Pulse Ox 99 01/16/18 05:58 Lab Results: Laboratory Results Hemoglobin A1c 5.8 % (4.3-6.0) 01/07/18 07:00 Triglycerides 131 mg/dL (42-150) 01/07/18 07:00 Cholesterol 148 mg/dL (120-200) 01/07/18 07:00 LDL Cholesterol, Calc 89 mg/dL (0-99) 01/07/18 07:00 HDL Cholesterol 32.4 mg/dL (40.0-60.0) L 01/07/18 07:00 TSH 0.736 uIU/mL (0.358-3.740) 01/06/18 17:04 Summary of Procedures: None done Pending Results: None - Medications Number of antipsychotic medications at discharge: 1 - Discharge Care Plan Goals to Promote Your Health: * To prevent worsening of your condition and complications * To maintain your health at the optimal level Directions to Meet Your Goals: Take your medications as prescribed Follow your dietary instruction Follow activity as directed Keep your appointments as scheduled Take your immunizations and boosters as scheduled If your symptoms worsen call your PCP, if no PCP go to Urgent Care Center or Emergency Room For 20/09 questions related to your inpatient stay or results of tests pending at discharge, please contact Dr. Angelito Yanez MD at Smoking is Dangerous to Your Health. Avoid second hand smoking
--- NOTE | 2018-01-16 13:03 | P.TTN ---
- Patient Problems Problems: 1. Discharge planning 2. Medication compliance 3. Knowledge deficit 4. Lack of coping skills - Progress Toward Goals Provider Present: Dr. Virgil Yanez (Patient remains for further stabilization, Dr. Yanez is titrating medications.) Provider Input: 01/16: Pt was placed on Geodon on Tuesday; remains with poor insight; will evaluate him today; he has to be willing to take po medication for atleast 2-3 days before considering an injectable; pt will be discharged today; he is court ordered to take po medication and will folllow up with [facility]; he agrees. 01/11: Pt currently meets criteria. He has been displaying intimidating behavior at home; refuses medications Nurse(s) Present: Jessika Nurse Input: 01/16: Pt is being discharged today. 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 01/11 : Pt's mother will not allow him back to the house unless he receives a long acting injection Group Spec/RT/OT/ADAMS Present: BRYAN Hernández Group Spec/RT/OT/ADAMS Input: 01/16: Pt attends fresh air group only; remains seclusive to self with minimal participation. 01/11: Pt attends select groups with minimal participation, remains seclusive to self and withdrawn - Discharge Plan Other 01/16: Pt will be discharged today to his mother's house. Follow up with [facility] 01/11: Discharge planning in progress. Possible discharge back to mother's house - Documentation Teaching Recipient: Patient
== END 2018-01-16 15:30 | disposition home or self-care (01) ==
LOC: NEPB 16:38 → NEDA 21:01 → H260 21:38
PROVIDERS: ADMIT Psychiatry & Neurology Psychiatry; ATTEND Psychiatry & Neurology Psychiatry